=== PATIENT | male | born 1965 | race Caucasian/White ===

== ENCOUNTER 2018-11-24 12:50 | Day surgery (SDC) | payer MEDICARE ==
[2018-11-24 13:01] VITALS: BMI 40.8
[2018-11-24 13:27] LABS: BASO # 0.1 K/uL (0.0-0.2); BASO % 1.1 % (0.0-2.0); EOS # 0.2 K/uL (0.0-0.7); HEMOGLOBIN 13.8 g/dL (12.0-18.0); LYMPH # 2.1 K/uL (1.0-4.3); LYMPH % 29.7 % (20.0-40.0); MEAN CELL VOLUME 88.7 fL (80.0-94.0); MEAN CORPUSCULAR HEMOGLOBIN 29.3 pg (27.0-31.0); MEAN CORPUSCULAR HGB CONC 33.1 g/dL (33.0-37.0); MEAN PLATELET VOLUME 10.2 fL (7.2-11.7); MONO # 0.6 K/uL (0.0-0.8); MONO % 8.4 % (0.0-10.0); NEUT # 4.1 K/uL (1.8-7.0); NEUT % 57.8 % (50.0-75.0); NRBC % 0.1 % (0.0-2.0); RBC 4.69 Mil/uL (4.40-5.90); WHITE BLOOD COUNT 7.1 K/uL (4.8-10.8)
[2018-11-24 13:40] LABS: BLOOD UREA NITROGEN 13 mg/dL (9-20); CALCIUM 9.2 mg/dl (8.6-10.4); GFR NON-AFRICAN AMERICAN > 60
[2018-11-24 13:45] LABS: INR 1.1; PARTIAL THROMBOPLASTIN TIME 36.3 SECONDS (21-34); PROTHROMBIN TIME 12.4 SECONDS (9.7-12.2)
[2018-11-24] MEDS ORDERED: Propofol 10 mg/ml Inj (20 ML) ONE ×2 (14:06→14:53)
[2018-11-24] MEDS ORDERED: EPINEPHrine 1 mg/ml (1:1000) Inj ONE (14:07)
[2018-11-24] MEDS ORDERED: Lidocaine Hydrochloride 5 ML INJ ONE (14:07)
[2018-11-24] MEDS ORDERED: LIDOCAINE 2% PF (2ML) ONE (14:08)
[2018-11-24] MEDS ORDERED: Albuterol HFA 90 mcg/actuation (8 g) ONE (14:17)
[2018-11-24] MEDS ORDERED: Lactated Ringer's 1,000 ML IV SCH (15:15)
[2018-11-24] MEDS: HYDROmorphone 0.5 mg/0.5 ml ISec IVP PRN ×2 (15:22→15:54)
--- NOTE | 2018-11-24 16:34 | RAD ---
HISTORY: s/p bronchoscopy COMPARISON: None available. TECHNIQUE: Chest, one view. FINDINGS: Examination limited by habitus and hypoinflation. LUNGS: Right basilar atelectasis. Please note that chest x-ray has limited sensitivity for the detection of pulmonary masses. PLEURA: No significant pleural effusion identified. No definite pneumothorax . CARDIOVASCULAR: Borderline cardiomegaly. No significant atherosclerotic calcification present. OSSEOUS STRUCTURES: Postsurgical fixation of the upper thoracic spine. VISUALIZED UPPER ABDOMEN: Elevation of the right hemidiaphragm. OTHER FINDINGS: None. IMPRESSION: Right basilar atelectasis. Borderline cardiomegaly. Elevation of the right hemidiaphragm. No definite pneumothorax identified.
[2018-11-24 17:06] VITALS: RESP 18
[2018-11-24 17:08] VITALS: BP 149/59; PULSE 72; TEMP 97.8; O2SAT 97
--- NOTE | 2018-11-24 17:22 | RAD ---
PROCEDURE: HISTORY: As above COMPARISON: None TECHNIQUE: Total fluoroscopic time utilized during the procedure: 83.4 seconds ; 1.11 mGy cm 2 FINDINGS: Submitted images from the current procedure: 2 Please refer to the physician's notes performing the procedure. IMPRESSION: Less than 1 hour fluoroscopic time utilized during performance of the procedure
--- NOTE | 2018-11-25 10:43 | OP ---
PROCEDURE DATE: 11/24/2018 PROCEDURE: Bronchoscopy with biopsy. INDICATION: Sarcoidosis. ANESTHESIA: Local with IV sedation. DESCRIPTION OF PROCEDURE: Scope was passed through right nostril. Vocal cords inspected normal, deisy sharp. Transbronchial biopsy was done in the right lower lobe. Multiple biopsies were taken. Biopsy taken of upper lobe as well. Tolerated the procedure. Milka Santos MD
--- NOTE | 2018-11-26 | CARD ---
APPROVED REPORT Date of service: 11/24/2018 EKG Measurement Heart [id number] <Conclusion> Sinus bradycardia Otherwise normal ECG
== END 2018-11-24 17:10 | disposition home or self-care (01) ==
LOC: C.SDS 12:50
PROVIDERS: ATTEND Internal Medicine Pulmonary Disease
DX: D86.9 Sarcoidosis, unspecified (principal); J44.9 Chronic obstructive pulmonary disease, unspecified; G47.33 Obstructive sleep apnea (adult) (pediatric); J45.909 Unspecified asthma, uncomplicated; E03.9 Hypothyroidism, unspecified; Z79.899 Other long term (current) drug therapy
CPT/HCPCS: 31628; 36415; 71045; 80048; 85025; 85610; 85730; 87015; 87070; 87101; 87116; 87205; 87206; 88104; 88305; 88342; J1170; J7120